=== PATIENT | female | born 1980 ===

== ENCOUNTER 2024-11-25 02:21 | Outpatient (CLI) | payer OTHER, SELFPAY ==
--- NOTE | 2024-11-25 08:00 | DI.US_ITS ---
Exam(s) US NEEDLE LOCAL OTHER WO RAD EXAM: US NEEDLE LOCAL OTHER WO RAD CLINICAL HISTORY: Right thyroid nodule,ultrasound guided bx,e04.2. COMPARISON: US US Thyroid, Soft Tissue Hd+Nck from 10/22/2024 TECHNIQUE: The procedure was performed by Dr. Sheppard. FINDINGS: Please see procedure note for details. DATA REPOSITORY:
--- NOTE | 2024-11-25 12:20 | PAPNONF_PTH ---
PATIENT: Marylou Phillip LOC: [facility] U#:[id number] AGE/SX: 44/F ROOM: RE11/25/[address]: Aiden Sheppard MD : 1980 BED: DIS: 11/25/2024 SPEC #: [id number] RECD: 11/25/24 12:58 STATUS: DEMI REQ #: [id number] KHADAR: 11/25/24 12:[address]: Aiden Sheppard [facility]PT[facility] Cytology RECD BY: Eulalia Ferrer ENTERED: 11/25/24 12:59 SP TYPE: HOANG MAO DR: Essence Nicole Tissues: 1 - BODY FLUID CYTO-FINE NEEDLE [facility] Procedures: BODY FLUID CYTO-FINE NEEDLE ASPIRATE[facility] Comments: [id number] (PATH FNA CONSULT) (REFRIGERATED)
--- NOTE | 2024-11-25 12:48 | W.PROCNOTE ---
Date of service: 11/25/24 Time of Service: 12:48 Procedure Note Date of procedure: 11/25/24 Procedure: Ultrasound-guided FNA, right thyroid nodule, pathology present Surgeon/Proceduralist/Physician: Aiden Sheppard Procedure Diagnosis: Right 1.2 cm thyroid nodule meeting criteria for biopsy Procedure Indications: Patient has a right sided thyroid nodule meeting criteria for biopsy. Options were explained to the patient for further management. She elected undergo the above procedure. Consent was filled and signed prior to procedure. Procedure Description: The patient was positioned in supine position with her neck slightly extended. She was prepped and draped in appropriate fashion. Ultrasound was used to localize the right sided 1.2 cm thyroid nodule. 1% lidocaine with 1/100,000 epinephrine was injected in the skin and subcutaneous tissues overlying the thyroid nodule. A 25-gauge needle was then advanced into the thyroid nodule under ultrasound guidance, and used to perform biopsy. Once cellular adequacy had been reached, 2 additional passes were made for potential Afirma testing. After ensuring adequate hemostasis, sterile dressing was applied the patient was allowed to sit, stand, and then ambulate. Her vital signs remained stable. She will remove the bandage in an hour or 2 and not replace it. She will call with any signs of infection or any concerns or if she does not hear from me within 1 week. She may use ibuprofen or Tylenol for any discomfort. She will avoid any strenuous activity today. She had no further questions. She is comfortable with this plan.
== END 2024-11-25 02:41 ==
LOC: DI 02:22
PROVIDERS: PCP Nurse Practitioner; Visit Provider Otolaryngology
DX: E04.2 Nontoxic multinodular goiter (principal)
CPT/HCPCS: 10005; 76942; 88104